=== PATIENT | female | born 1945 | race Caucasian/White ===

== ENCOUNTER → 2021-04-23 13:59 | Outpatient (CLI) | payer MEDICARE, OTHER, SELFPAY ==
[2021-04-23 15:32] LABS: COVID19 -Nasal RAPID Negative (Negative)
--- NOTE | 2021-04-24 19:30 | DI.NM.S_ITS ---
DATE OF SERVICE: 04/23/2021 PROCEDURE: Exercise stress test. INDICATION: Chest discomfort. CARDIAC STRESS: The patient underwent exercise stress test under the supervision of an attending staff. The patient walked on Philip protocol for 9 minutes and achieved 114 percent of target heart rate. Baseline blood pressure 128/68. Maximum blood pressure 162/94. Maximum heart rate reported to be 166 beats per minute. Achieved SIERRA of -64 percent and 10.1 METs of workload. No anginal symptoms. [place] fatigue. Baseline rhythm was sinus and nonspecific upsloping ST depression in inferolateral leads at baseline. During exercise, there were no convincing new ischemic changes seen. No significant arrhythmias seen. CONCLUSION: This is a normal exercise stress test. The patient has baseline some nonspecific ST changes. No convincing inducible ischemic changes seen. Good exercise tolerance. 10.1 METs of workload. Normal hemodynamic response. No anginal symptoms. Overall, low-risk exercise stress test. [facility]/tressa/kendall doc#: [id number]/job#: [id number] dd: 04/24/2021 17:36:00 dt: 04/24/2021 18:58:00 DICTATING /COPIES TO: Lexii Portillo MD COPIES MNE: ELIDA;
== END ==
PROVIDERS: PCP Family Medicine; Referring Provider Family Medicine; Visit Provider Family Medicine
DX: R07.89 Other chest pain (principal)
CPT/HCPCS: 87635; 93017